=== PATIENT | male | born 1960 | race Caucasian/White ===

== ENCOUNTER 2019-09-21 15:35 | Emergency (ER) | payer OTHER ==
--- NOTE | 2019-09-21 15:41 | PDOC ---
Rapid Medical Evaluation Time Seen by Provider: 09/21/19 15:36 Medical Evaluation: 09/21/19 15:37 I have performed a brief in-person evaluation of this patient. The patient presents with a chief complaint of: weakness to RUE since 4 am, denies any pain, headache, change in vision or speech changes, denies CP/SOB Pertinent physical exam findings: 199/107 (L), 181/97, (R), no focal neuro deficits I have ordered the following: labs, ekg, head CT The patient will proceed to the ED for further evaluation. Discharge Disposition - Diagnosis Weakness - Referrals - Patient Instructions - Post Discharge Activity
[2019-09-21 15:43] VITALS: PULSE 79; TEMP 98.7; BMI 25.2
--- NOTE | 2019-09-21 16:21 | PDOC ---
History of Present Illness - History of Present Illness Initial Comments: 09/21/19 16:16 59M with pmh of DM2, HTN and HLD presents to the ED for neck pain and RUE weakness since 4am this morning. He felt like his right hand was very weak but didn't really appreciate how much until noon when he tried to lift a cup of coffee. He has known chronic orthopedic cervical spine problemes for years but has't seen his neurologist Dr. Matamoros in a few months. Was recently changed from his usual hypertensive and dm medication. Denies any headache, change in vision, chest pain, sob, difficulty walking or talking. Denies recent trauma. Last took his HTN medication at noon today. <Wilson Cristobal - Last Filed: 09/21/19 19:09> <Hannah Contreras - Last Filed: 09/22/19 10:29> - General Chief Complaint: Weakness Stated Complaint: WEAKNESS/BP PROBLEM Time Seen by Provider: 09/21/19 15:36 Past History - Past Medical History COPD: No Diabetes: Yes HTN: Yes Hypercholesterolemia: Yes - Psycho Social/Smoking Cessation Hx Smoking History: Current every day smoker Number of Cigarettes Smoked Daily: 20 Information on smoking cessation initiated: No Hx Alcohol Use: No Drug/Substance Use Hx: No <Wilson Cristobal - Last Filed: 09/21/19 19:09> <Hannah Contreras - Last Filed: 09/22/19 10:29> - Past Medical History Allergies/Adverse Reactions: Allergies Allergy/AdvReac Type Severity Reaction Status Date / Time No Known Allergies Allergy Verified 09/21/19 16:00 Home Medications: Ambulatory Orders Albuterol Sulfate Inhaler - [Ventolin Hfa Inhaler -] 1 - 2 inh PO Q4H PRN Amlodipine Besylate [Norvasc -] 5 mg PO DAILY 09/21/19 Budesonide/Formeterol Fumarate [SYMBICORT 160/4.5mcg -] 1 inh PO BID 09/21/19 Glimepiride [Amaryl -] 2 mg PO BID 09/21/19 Losartan Potassium [Cozaar] 100 mg PO DAILY 09/21/19 Metoprolol Succinate [Toprol Xl] 100 mg PO DAILY 09/21/19 Omeprazole 20 mg PO DAILY 09/21/19 Oxycodone HCl 10 mg PO TID 09/21/19 Pravastatin Sodium [Pravachol] 40 mg PO HS 09/21/19 Sitagliptin Phos/Metformin HCl [Janumet 50-500 mg Tablet] 1 each PO ASDIR Tamsulosin HCl [Flomax] 0.4 mg PO DAILY 09/21/19 Triamterene/Hydrochlorothiazid [Triamterene-Hctz 37.5-25 mg Cp] 1 each PO DAILY 09/21/19 Review of Systems - Review of Systems Able to Perform ROS?: Yes Is the patient limited Irish proficient: No Constitutional: No: Symptoms Reported HEENTM: No: Symptoms Reported Respiratory: No: Symptoms reported Cardiac (ROS): No: Symptoms Reported ABD/GI: No: Symptoms Reported : No: Symptoms Reported Musculoskeletal: No: Symptoms Reported Integumentary: No: Symptoms Reported Neurological: Yes: See HPI Endocrine: No: Symptoms Reported All Other Systems: Reviewed and Negative <Wilson Cristobal - Last Filed: 09/21/19 19:09> *Physical Exam - Vital Signs Last Vital Signs Temp Pulse Resp BP Pulse Ox 98.7 F 79 16 181/97 H 100 09/21/19 15:40 09/21/19 15:40 09/21/19 15:40 09/21/19 15:40 09/21/19 15:40 - Physical Exam General Appearance: Yes: Nourished, Appropriately Dressed. No: Apparent Distress HEENT: positive: EOMI, SILVIANO, Normal ENT Inspection Respiratory/Chest: positive: Lungs Clear, Normal Breath Sounds. negative: Chest Tender, Respiratory Distress Cardiovascular: positive: Regular Rhythm, Regular Rate, S1, S2 Gastrointestinal/Abdominal: positive: Normal Bowel Sounds, Flat, Soft. negative : Tender Extremity: positive: Other (Shoulder flexion with supinated hand shoots pain to right sided neck where his pain usually is. Strength 5/5 but causes pain to shoot to neck, arms gets shaky with effort. ) Integumentary: positive: Normal Color, Dry, Warm Neurologic: positive: Fully Oriented, Alert, Normal Mood/Affect, Normal Response , Motor Strength 5/5 <Wilson Cristobal - Last Filed: 09/21/19 19:09> - Vital Signs Last Vital Signs Temp Pulse Resp BP Pulse Ox 98.7 F 79 16 130/75 100 09/21/19 15:40 09/21/19 15:40 09/21/19 15:40 09/21/19 17:24 09/21/19 15:40 <Hannah Contreras - Last Filed: 09/22/19 10:29> ED Treatment Course - LABORATORY CBC & Chemistry Diagram: 09/21/19 16:20 09/21/19 17:21 - RADIOLOGY Radiology Studies Ordered: Category Date Time Status CERVICAL SPINE CT W/O CONTR [CT] Stat CT Scan 09/21/19 16:[address] (STROKE) [CT] Stat CT Scan 09/21/19 16:15 Ordered <Wilson Cristobal - Last Filed: 09/21/19 19:09> - LABORATORY CBC & Chemistry Diagram: 09/21/19 16:20 09/21/19 17:21 - ADDITIONAL ORDERS Additional order review: 09/21/19 16:20 RBC 4.66 MCV 91.3 MCHC 33.0 RDW 14.7 MPV 10.6 D Neutrophils % 69.4 Lymphocytes % 20.1 Monocytes % 8.3 Eosinophils % 1.3 Basophils % 0.9 - RADIOLOGY Radiology Studies Ordered: Category Date Time Status CERVICAL SPINE CT W/O CONTR [CT] Stat CT Scan 09/21/19 18:19 Completed - Medications Given in the ED: ED Medications Discontinued Medications Generic Name Dose Route Start Last Admin Trade Name Freq PRN Reason Stop Dose Admin Sodium Chloride 1,000 mls @ 1,000 mls/hr 09/21/19 18:47 09/21/19 19:41 Normal Saline - IV 09/21/19 19:46 1,000 mls/hr ASDIR STA Administration <Hannah Contreras - Last Filed: 09/22/19 10:29> Medical Decision Making - Medical Decision Making 09/21/19 16:33 59M with pmh of DM2, HTN and HLD presents to the ED for neck pain and RUE weakness since 4am this morning. This is likely a radiculopathy caused by a cervical spine process which this patient is known to have, due to the fact that the weakness is associated with shooting pain to the neck. The patient has no other focal deficits. Low suspicion for stroke however will still obtain appropriate labs and CT head and neck. 09/21/19 16:[address] Matamoros who wishes to be called back after the CT results. 09/21/19 18:12 Will obtain CTA head and neck to r/o carotid dissection due to the patient's hypertension and neck pain., Ok to use IV contrast even though patient has creatinine of 1.4 09/21/19 19:09 CTA read pending. Anastacia Matamoros to be notified. Patient signed out to Chief Ali <Wilson Cristobal - Last Filed: 09/21/19 19:09> Discharge - Discharge Information Problems reviewed: Yes <CristobalWilson - Last Filed: 09/21/19 19:09> - Admission No <Hannah Contreras - Last Filed: 09/22/19 10:29> - Discharge Information Clinical Impression/Diagnosis: Weakness, Radiculopathy affecting upper extremity Condition: Stable Disposition: HOME - Follow up/Referral Referrals: Anton Flores MD [Primary Care Provider] - Emilia Matamoros MD [Staff Physician] - - Patient Discharge Instructions Patient Printed Discharge Instructions: DI for Cervical Radiculopathy Additional Instructions: You have changes due to old age in your neck which are causing your nerves to be pinched. Discuss your results with your neurologist. Please take your medications as instructed and Tylenol for the pain every 6 hours as needed. Please follow up with Dr. Matamoros in the office (call to make an appointment). Please return to the ED if you have new or worsening symptoms. NIH Stroke Scale - Last Known Well Date/Time & Onset Date Last Known Well: 09/21/19 Time Last Known Well: 04:00 - Initial Evaluation Level of consciousness: Alert Ask patient the month and their age: Answers both correctly Ask patient to open & close eyes; make fist and let go: Obeys both correctly Best gaze (horizontal eye movement): Normal Visual field testing: No visual field loss Facial paresis (Show teeth/raise eyebrows/close eyes tight): Normal symmetrical movement Motor Function: Left Arm: Normal Motor Function: Right Arm: Drift Motor Function: Left Leg: Normal (extends leg 30 degrees for 5 seconds without drift) Motor Function: Right Leg: Normal (extends leg 30 degrees for 5 seconds without drift) Limb Ataxia: No ataxia Sensory(Use pinprick test arms,legs,trunk,face/side to side): Normal Best language (Describe picture, name items, read sentences): No Aphasia Dysarthria (read several words): Normal articulation Extinction and Inattention: No abnormality - Total Score NIH Stroke Scale Score: 1 <Wilson Cristobal - Last Filed: 09/21/19 19:09>
--- NOTE | 2019-09-21 16:39 | PDOC ---
Attending Attestation - Resident Resident Name: Wilson Cristobal - ED Attending Attestation I have performed the following: I have examined & evaluated the patient, The case was reviewed & discussed with the resident, I agree w/resident's findings & plan - HPI HPI: 09/21/19 16:38 59M with pmh of DM2, HTN and HLD presents to the ED for neck pain and RUE weakness since 4am this morning. He felt like his right hand was very weak but didn't really appreciate how much until noon when he tried to lift a cup of coffee. he endorses sharp shooting pain in his neck and a/w RUE pain/weakness. He has known chronic orthopedic cervical spine problems for years but hasn't seen his neurologist Dr. Matamoros in a few months. Was recently changed from his usual hypertensive and dm medication. Denies any headache, change in vision, chest pain, sob, difficulty walking or talking. Denies recent trauma. denies meningeal signs or infection, fevers. no gait instability Last took his HTN medication at noon today. 09/21/19 16:38 09/21/19 18:17 09/21/19 19:28 - Physicial Exam PE: 09/21/19 16:38 Agree with the resident's HPI and PE as documented in the electronic medical record. NAD, well appearing, EOMI, PERRL, nl conjunctiva, anicteric; neck supple, b/l paracervical TTP, no midline tenderness. lungs clear, RRR, no murmur, abdomen soft nontender. no rebound, guarding. Back nontender. KENNEY x4, no focal neuro deficits. No peripheral edema. normal color for ethnicity, WWP. Alert, oriented to person time and place. CN II-XII grossly intact. deltoid strength and sensation 5/5. FROM at the prox shoulder. Strength prox and distally 5/5 throughout. Sensation grossly intact to light touch. KENNEY x4. No cerebellar signs, no dysmetria, bilateral finger to nose and heel to monson equal and symmetric. Speech clear. gait stable, no ataxia 09/21/19 16:41 09/21/19 19:26 09/21/19 19:27 - Medical Decision Making 09/21/19 16:41 Vital Signs Temp Pulse Resp BP Pulse Ox 98.7 F 79 16 181/97 H 100 12/17/19 15:40 09/21/19 15:40 09/21/19 15:40 09/21/19 15:40 09/21/19 15:40 Differential diagnosis includes radiculopathy, neuropathy, cervical spine impingement, cervical dissection, aneurysm, carotid stenosis, CVA Chest x-ray is sinus rhythm, chemistry panel is within normal limits. Negative cardiac enzymes so unlikely to be ACS. CT to evaluate for dissection/aneurysm, carotid vessel disease given medical comorbidities and neck pain with RUE weakness, C spine imaging for cervical spine nerve impingement/radiculopathy declines analgesia clinically without focal neuro deficits currently, RUE weakness/radicular pain coming from neck, reproducible sx with arm and neck movement. unlikely CVA no trauma Dr Matamoros made aware, known history of cervical disease, will update with imaging results. s/o pending results, dispo. 09/21/19 18:16 09/21/19 19:27 09/21/19 19:28 09/21/19 19:28 09/22/19 10:30 Heart Score/ECG Review #1 ECG reviewed & interpreted by me at: 17:40 General ECG Interpretation: Sinus Rhythm, Normal Rate, Normal Intervals 09/21/19 17:43 EKG normal sinus rhythm at 72 bpm, no interval abnormalities, narrow QRS, ST and T wave segments and morphology normal.
[2019-09-21 16:45] LABS: BASO % 0.9 % (0-2.0); EOS % 1.3 % (0-4.5); HEMATOCRIT 42.6 % (35.4-49); LYMPH % 20.1 % (8-40); MCH 30.1 pg (25.7-33.7); MEAN CELL VOLUME 91.3 fl (80-96); MEAN PLT VOLUME 10.6 fl (7.5-11.1); MONO % 8.3 % (3.8-10.2); NEUT % 69.4 % (42.8-82.8); PLATELET COUNT 127 K/MM3 (134-434); RBC 4.66 M/mm3 (4.00-5.60); RDW 14.7 % (11.9-15.9); WHITE BLOOD COUNT 9.9 K/mm3 (4.0-10.0)
[2019-09-21 17:18] LABS: INR 0.93 (0.83-1.09)
[2019-09-21 17:21] LABS: ACTIVATED PTT 30.3 SECONDS (25.2-36.5)
[2019-09-21 17:24] VITALS: BP 130/75
[2019-09-21 18:06] LABS: ALBUMIN 3.8 g/dl (3.4-5.0); ALK PHOS 84 U/L (45-117); ANION GAP 9 MMOL/L (8-16); BILIRUBIN,TOTAL 0.6 mg/dL (0.2-1); BLOOD UREA NITROGEN 25.1 mg/dL (7-18); CALCIUM 9.1 mg/dL (8.5-10.1); CHLORIDE 107 mmol/L (98-107); CHOLESTEROL 157 mg/dL (50-200); CO2 26 mmol/L (21-32); CREATININE 1.4 mg/dL (0.55-1.3); GLUCOSE,RANDOM 150 mg/dL (74-106); HDL CHOLESTEROL 87 mg/dL (40-60); LDL CHOLESTEROL (ONLY SJRH) 44 mg/dL (5-100); POTASSIUM 4.9 mmol/L (3.5-5.1); SGOT/AST 85 U/L (15-37); SGPT/ALT 37 U/L (13-61); SODIUM 143 mmol/L (136-145); TRIGLYCERIDES 96 mg/dL (0-150)
[2019-09-21] MEDS ORDERED: SODIUM CHLORIDE 1,000 ML IV STA (18:47)
--- NOTE | 2019-09-21 20:12 | PDOC ---
*Physical Exam - Vital Signs Last Vital Signs Temp Pulse Resp BP Pulse Ox 98.7 F 79 16 130/75 100 09/21/19 15:40 09/21/19 15:40 09/21/19 15:40 09/21/19 17:24 09/21/19 15:40 - Physical Exam Signed out to me by Dr. Cristobal pending reads of CTA and conversation with Dr. Bass. CTA head and neck relatively unremarkable with minor stenosis. CT cervical spine demonstrating worsening degenerative changes between C3-C7. Discussed with patient (who feels better) and Dr. Matamoros who will see patient in office and arrange follow up with neurosurgery as needed. Patient agrees with plan and safe for discharge with family. 09/21/19 20:06 ED Treatment Course - LABORATORY CBC & Chemistry Diagram: 09/21/19 16:20 09/21/19 17:21 - ADDITIONAL ORDERS Additional order review: Laboratory Results 09/21/19 09/21/19 09/21/19 17:21 17:20 16:20 PT with INR INR PTT (Actin FS) Sodium 143 Cancelled Potassium 4.9 Cancelled Chloride 107 Cancelled Carbon Dioxide 26 Cancelled Anion Gap 9 Cancelled BUN 25.1 H Cancelled Creatinine 1.4 H Cancelled Est GFR (CKD-EPI)AfAm 62.40 Cancelled Est GFR (CKD-EPI)NonAf 53.84 Cancelled Random Glucose 150 H Cancelled Calcium 9.1 Cancelled Total Bilirubin 0.6 Cancelled AST 85 H Cancelled ALT 37 Cancelled Alkaline Phosphatase 84 Cancelled Creatine Kinase 140 Troponin I < 0.02 Total Protein 7.0 Cancelled Albumin 3.8 Cancelled Triglycerides 96 Cholesterol 157 Total LDL Cholesterol 44 HDL Cholesterol 87 H Blood Type O POSITIVE Antibody Screen Negative 09/21/19 09/21/19 16:20 16:20 PT with INR 11.00 INR 0.93 PTT (Actin FS) 30.3 Sodium Potassium Chloride Carbon Dioxide Anion Gap BUN Creatinine Est GFR (CKD-EPI)AfAm Est GFR (CKD-EPI)NonAf Random Glucose Calcium Total Bilirubin AST ALT Alkaline Phosphatase Creatine Kinase Cancelled Troponin I Cancelled Total Protein Albumin Triglycerides Cholesterol Total LDL Cholesterol HDL Cholesterol Blood Type Antibody Screen 09/21/19 16:20 RBC 4.66 MCV 91.3 MCHC 33.0 RDW 14.7 MPV 10.6 D Neutrophils % 69.4 Lymphocytes % 20.1 Monocytes % 8.3 Eosinophils % 1.3 Basophils % 0.9 - Medications Given in the ED: ED Medications Discontinued Medications Generic Name Dose Route Start Last Admin Trade Name [place] PRN Reason Stop Dose Admin Sodium Chloride 1,000 mls @ 1,000 mls/hr 09/21/19 18:47 09/21/19 19:41 Normal Saline - IV 09/21/19 19:46 1,000 mls/hr ASDIR STA Administration Discharge - Discharge Information Problems reviewed: Yes Clinical Impression/Diagnosis: Weakness, Radiculopathy affecting upper extremity Condition: Stable Disposition: HOME - Admission No - Follow up/Referral Referrals: Anton Flores MD [Primary Care Provider] - Emilia Matamoros MD [Staff Physician] - - Patient Discharge Instructions Patient Printed Discharge Instructions: DI for Cervical Radiculopathy Additional Instructions: You have changes due to old age in your neck which are causing your nerves to be pinched. Discuss your results with your neurologist. Please take your medications as instructed and Tylenol for the pain every 6 hours as needed. Please follow up with Dr. Matamoros in the office (call to make an appointment). Please return to the ED if you have new or worsening symptoms. - Post Discharge Activity
--- NOTE | 2019-09-22 12:37 | EKG ---
Test Reason : Blood Pressure : / mmHG Vent. Rate : 072 BPM Atrial Rate : 072 BPM P-R Int : 142 ms QRS Dur : 074 ms QT Int : 386 ms P-R-T Axes : 074 060 066 degrees QTc Int : 422 ms POOR DATA QUALITY, INTERPRETATION MAY BE ADVERSELY AFFECTED NORMAL SINUS RHYTHM POSSIBLE LEFT ATRIAL ENLARGEMENT BORDERLINE ECG WHEN COMPARED WITH ECG OF 22-MAR-2006 12:26, VENT. RATE HAS DECREASED BY 35 BPM Confirmed by MOISES KING MD ([id number]) on 09/22/2019 12:37:12 PM Referred By: Confirmed By:MOISES KING MD
== END 2019-09-21 20:19 | disposition home or self-care (01) ==
LOC: JER 15:35
PROC: 3E0337Z Introduction of Electrolytic and Water Balance Substance into Peripheral Vein, Percutaneous Approach (ICD-10-PCS; principal; 2019-09-21)
DX: R53.1 Weakness (principal)
CPT/HCPCS: 36415; 70496-TC; 70498-TC; 72125-TC; 80053; 80061; 82550; 83721; 84484; 85025; 85610; 85730; 86850; 86900; 86901; 93005; 93010; 99283-25; J7030; Q9967

== ENCOUNTER 2020-08-12 15:41 | Inpatient (IN) | payer OTHER ==
[2020-08-12] MEDS ORDERED: chlordiazePOXIDE HCL 25 MG CAPSULE PO ONE (16:51)
[2020-08-12] MEDS ORDERED: LORazepam 2 MG/ML SDV VIAL ONE (17:15)
[2020-08-12] MEDS ORDERED: chlordiazePOXIDE HCL 25 MG CAPSULE ONE ×2 (17:16→22:32)
[2020-08-12 17:17] LABS: BASO % 0.8 % (0-2.0); HEMATOCRIT 38.6 % (35.4-49); HEMOGLOBIN 12.6 GM/dL (11.7-16.9); LYMPH % 18.5 % (8-40); MCH 30.2 pg (25.7-33.7); MCHC 32.7 g/dl (32.0-35.9); MEAN CELL VOLUME 92.4 fl (80-96); MEAN PLT VOLUME 10.8 fl (7.5-11.1); MONO % 7.6 % (3.8-10.2); NEUT % 72.1 % (42.8-82.8); PLATELET COUNT 102 K/MM3 (134-434); RBC 4.18 M/mm3 (4.00-5.60); RDW 14.1 % (11.9-15.9); WHITE BLOOD COUNT 9.4 K/mm3 (4.0-10.0)
[2020-08-12 17:35] LABS: INR 0.98 (0.83-1.09); PROTHROMBIN TIME (PATIENT) 12.1 SEC (9.7-13.0)
[2020-08-12 17:43] LABS: POTASSIUM 5.4 mmol/L (3.5-5.1)
[2020-08-12 17:44] LABS: LIPASE 313 U/L (73-393)
[2020-08-12 17:45] LABS: CALCIUM 8.1 mg/dL (8.5-10.1)
[2020-08-12 17:46] LABS: ALBUMIN 4.2 g/dl (3.4-5.0); BLOOD UREA NITROGEN 27.4 mg/dL (7-18); MAGNESIUM 1.2 mg/dL (1.8-2.4)
[2020-08-12 17:49] LABS: CREATININE 1.7 mg/dL (0.55-1.3)
[2020-08-12 17:50] LABS: TOT PROT 7.7 g/dl (6.4-8.2)
[2020-08-12] MEDS ORDERED: MAGNESIUM OXIDE 400 MG TABLET (FP) PO ONE (18:56)
[2020-08-12] MEDS ORDERED: FOLIC ACID INJECTION - 1 MG, THIAMINE HCL 100 MG, MULTIVIT INJECTION ADULT 10 ML in SOD... IVPB ONE (18:57)
[2020-08-12] MEDS ORDERED: MAGNESIUM OXIDE 400 MG TABLET (FP) ONE (19:05)
[2020-08-12 20:07] LABS: POTASSIUM 5.3 mmol/L (3.5-5.1)
[2020-08-12 20:09] LABS: ALBUMIN 3.9 g/dl (3.4-5.0); BLOOD UREA NITROGEN 30.2 mg/dL (7-18); CALCIUM 8.3 mg/dL (8.5-10.1)
[2020-08-12 20:13] LABS: CREATININE 1.7 mg/dL (0.55-1.3)
[2020-08-12 20:14] LABS: BILIRUBIN,TOTAL 0.9 mg/dL (0.2-1); TOT PROT 7.2 g/dl (6.4-8.2)
[2020-08-12] MEDS ORDERED: FOLIC ACID 1 MG TABLET (FP) PO ONE (20:47)
[2020-08-12] MEDS ORDERED: chlordiazePOXIDE HCL 25 MG CAPSULE PO PRN (20:48)
[2020-08-12] MEDS ORDERED: FOLIC ACID 1 MG TABLET (FP) ONE (22:32)
[2020-08-12] MEDS: chlordiazePOXIDE HCL 25 MG CAPSULE PO SCH (22:55)
[2020-08-13] MEDS: SODIUM CHLORIDE 1,000 ML IV SCH ×3 (00:32→21:40)
[2020-08-13 01:57] VITALS: BMI 22.5
[2020-08-13] MEDS: chlordiazePOXIDE HCL 25 MG CAPSULE PO SCH ×4 (05:49→22:55)
[2020-08-13] MEDS ORDERED: GLIMEPIRIDE 2 MG TABLET PO SCH (07:00)
[2020-08-13 07:42] LABS: BASO % 0.9 % (0-2.0); EOS % 3.2 % (0-4.5); HEMATOCRIT 30.4 % (35.4-49); HEMOGLOBIN 9.9 GM/dL (11.7-16.9); LYMPH % 31.2 % (8-40); MCH 29.8 pg (25.7-33.7); MCHC 32.5 g/dl (32.0-35.9); MEAN CELL VOLUME 91.7 fl (80-96); MEAN PLT VOLUME 10.1 fl (7.5-11.1); MONO % 12.2 % (3.8-10.2); NEUT % 52.5 % (42.8-82.8); PLATELET COUNT 61 K/MM3 (134-434); RBC 3.31 M/mm3 (4.00-5.60); RDW 13.9 % (11.9-15.9); WHITE BLOOD COUNT 4.5 K/mm3 (4.0-10.0)
[2020-08-13] MEDS: TAMSULOSIN HCL 0.4 MG CAP PO SCH (08:06)
[2020-08-13 08:07] LABS: POTASSIUM 3.9 mmol/L (3.5-5.1)
[2020-08-13 08:13] LABS: CALCIUM 7.6 mg/dL (8.5-10.1)
[2020-08-13 08:14] LABS: ALBUMIN 3.1 g/dl (3.4-5.0); BLOOD UREA NITROGEN 31.6 mg/dL (7-18); MAGNESIUM 1.3 mg/dL (1.8-2.4)
[2020-08-13 08:17] LABS: CREATININE 1.5 mg/dL (0.55-1.3)
[2020-08-13 08:18] LABS: BILIRUBIN,TOTAL 1.1 mg/dL (0.2-1); TOT PROT 5.8 g/dl (6.4-8.2)
[2020-08-13] MEDS ORDERED: PT OWN MED DRAWER 7, Y5N ONE (09:40)
[2020-08-13] MEDS: MULTIVITAMINS (DAILY MVI) TABLET (FP) PO SCH (09:46)
[2020-08-13] MEDS: THIAMINE HCL 100 MG TABLET (FP) PO SCH (09:46)
[2020-08-13] MEDS: BUDESONIDE/FORMETEROL FUMARATE 160/4.5 mcg INHALER IH SCH ×2 (09:46→21:42)
[2020-08-13] MEDS ORDERED: HEPARIN NA (PORCINE) 5,000 UNITS/ML 1ML VIAL SQ SCH (10:00)
[2020-08-13] MEDS ORDERED: METOPROLOL TARTRATE 50 MG TABLET (FP) PO SCH (10:00)
[2020-08-13] MEDS ORDERED: MAGNESIUM SULF 50% (8.12 MEQ/2 ML-1 GM VIAL) IVPB ONE (16:20)
[2020-08-13] MEDS: ATORVASTATIN CA 10 MG TABLET (FP) PO SCH (21:41)
[2020-08-13] MEDS: INSULIN SLIDING SCALE (NOVOLOG) 1 VIAL SQ SCH ×2 (21:41→21:47)
[2020-08-14] MEDS: SODIUM CHLORIDE 1,000 ML IV SCH ×2 (05:52→23:04)
[2020-08-14] MEDS: chlordiazePOXIDE HCL 25 MG CAPSULE PO SCH ×4 (05:53→22:52)
[2020-08-14] MEDS: INSULIN SLIDING SCALE (NOVOLOG) 1 VIAL SQ SCH ×5 (05:59→22:58)
[2020-08-14 07:20] LABS: BASO % 0.4 % (0-2.0); EOS % 2.8 % (0-4.5); HEMATOCRIT 31.4 % (35.4-49); HEMOGLOBIN 10.1 GM/dL (11.7-16.9); LYMPH % 33.5 % (8-40); MCH 29.9 pg (25.7-33.7); MCHC 32.1 g/dl (32.0-35.9); MEAN CELL VOLUME 93.1 fl (80-96); MEAN PLT VOLUME 9.8 fl (7.5-11.1); NEUT % 52.3 % (42.8-82.8); PLATELET COUNT 59 K/MM3 (134-434); RBC 3.37 M/mm3 (4.00-5.60); RDW 13.8 % (11.9-15.9); WHITE BLOOD COUNT 4.5 K/mm3 (4.0-10.0)
[2020-08-14 07:53] LABS: POTASSIUM 3.9 mmol/L (3.5-5.1)
[2020-08-14 08:01] LABS: ALBUMIN 2.9 g/dl (3.4-5.0); BLOOD UREA NITROGEN 18.6 mg/dL (7-18); CALCIUM 7.8 mg/dL (8.5-10.1)
[2020-08-14 08:05] LABS: CREATININE 1.1 mg/dL (0.55-1.3)
[2020-08-14 08:06] LABS: BILIRUBIN,TOTAL 0.8 mg/dL (0.2-1); TOT PROT 5.7 g/dl (6.4-8.2)
[2020-08-14] MEDS: THIAMINE HCL 100 MG TABLET (FP) PO SCH (09:24)
[2020-08-14] MEDS: TAMSULOSIN HCL 0.4 MG CAP PO SCH (09:24)
[2020-08-14] MEDS: MULTIVITAMINS (DAILY MVI) TABLET (FP) PO SCH (09:25)
[2020-08-14] MEDS: BUDESONIDE/FORMETEROL FUMARATE 160/4.5 mcg INHALER IH SCH ×2 (09:25→22:53)
[2020-08-14] MEDS: CYANOCOBALAMIN 1,000 MCG TABLET (FP) PO SCH (13:35)
[2020-08-14] MEDS ORDERED: PT OWN MED DRAWER 7, Y5N ONE (16:31)
[2020-08-14] MEDS: THIAMINE HCL 200 MG/2 ML VIAL IVPB SCH (22:52)
[2020-08-14] MEDS: ATORVASTATIN CA 10 MG TABLET (FP) PO SCH (22:53)
[2020-08-15] MEDS ORDERED: chlordiazePOXIDE HCL 10 MG CAPSULE PO PRN
[2020-08-15] MEDS: THIAMINE HCL 200 MG/2 ML VIAL IVPB SCH ×3 (02:20→17:37)
[2020-08-15] MEDS: chlordiazePOXIDE HCL 10 MG CAPSULE PO SCH ×4 (06:48→23:59)
[2020-08-15] MEDS: INSULIN SLIDING SCALE (NOVOLOG) 1 VIAL SQ SCH ×4 (06:54→21:09)
[2020-08-15 08:00] LABS: HEMATOCRIT 30.5 % (35.4-49); HEMOGLOBIN 9.9 GM/dL (11.7-16.9); MCH 30.6 pg (25.7-33.7); MCHC 32.5 g/dl (32.0-35.9); MEAN CELL VOLUME 94.1 fl (80-96); MEAN PLT VOLUME 10.5 fl (7.5-11.1); PLATELET COUNT 63 K/MM3 (134-434); RBC 3.23 M/mm3 (4.00-5.60); RDW 14.3 % (11.9-15.9); WHITE BLOOD COUNT 5.4 K/mm3 (4.0-10.0)
[2020-08-15] MEDS: TAMSULOSIN HCL 0.4 MG CAP PO SCH (08:18)
[2020-08-15 08:30] LABS: POTASSIUM 3.8 mmol/L (3.5-5.1)
[2020-08-15 08:37] LABS: ALBUMIN 2.6 g/dl (3.4-5.0); BLOOD UREA NITROGEN 11.7 mg/dL (7-18); CALCIUM 7.7 mg/dL (8.5-10.1)
[2020-08-15 08:38] LABS: IRON SERUM 41 ug/dL (50-175); TOTAL IRON BINDING CAPACITY 174 ug/dL (250-450)
[2020-08-15 08:40] LABS: CREATININE 0.8 mg/dL (0.55-1.3)
[2020-08-15 08:42] LABS: BILIRUBIN,TOTAL 0.4 mg/dL (0.2-1); TOT PROT 5.4 g/dl (6.4-8.2)
[2020-08-15] MEDS: CYANOCOBALAMIN 1,000 MCG TABLET (FP) PO SCH (09:19)
[2020-08-15] MEDS: MULTIVITAMINS (DAILY MVI) TABLET (FP) PO SCH (09:19)
[2020-08-15] MEDS: BUDESONIDE/FORMETEROL FUMARATE 160/4.5 mcg INHALER IH SCH ×2 (09:20→21:09)
[2020-08-15] MEDS ORDERED: FERROUS SO4 325 MG TABLET (FP) PO SCH (12:30)
[2020-08-15] MEDS ORDERED: MAGNESIUM OXIDE 400 MG TABLET (FP) PO ONE (12:30)
[2020-08-15 12:40] LABS: HIV INTERPRETATION NEGATIVE (NEGATIVE)
[2020-08-15] MEDS: FERROUS SO4 325 MG TABLET (FP) PO SCH ×2 (12:52→21:08)
[2020-08-15] MEDS: DOCUSATE SODIUM 100 MG CAPSULE (FP) PO SCH (12:53)
[2020-08-15] MEDS ORDERED: IRON SUCROSE INJECTION 300 MG in SODIUM CHLORIDE 235 ML IVPB ONE (15:00)
[2020-08-15] MEDS: ATORVASTATIN CA 10 MG TABLET (FP) PO SCH (21:08)
[2020-08-16] MEDS: THIAMINE HCL 200 MG/2 ML VIAL IVPB SCH ×3 (01:37→17:10)
[2020-08-16] MEDS: INSULIN SLIDING SCALE (NOVOLOG) 1 VIAL SQ SCH ×4 (06:05→22:02)
[2020-08-16] MEDS: chlordiazePOXIDE HCL 10 MG CAPSULE PO SCH ×2 (06:05→17:09)
[2020-08-16 07:39] LABS: POTASSIUM 3.7 mmol/L (3.5-5.1)
[2020-08-16 07:56] LABS: ALBUMIN 2.9 g/dl (3.4-5.0); BLOOD UREA NITROGEN 10.2 mg/dL (7-18)
[2020-08-16 07:58] LABS: BILIRUBIN,TOTAL 0.4 mg/dL (0.2-1)
[2020-08-16 08:06] LABS: TOT PROT 5.5 g/dl (6.4-8.2)
[2020-08-16] MEDS ORDERED: PT OWN MED DRAWER 7, Y5N ONE (08:50)
[2020-08-16] MEDS: TAMSULOSIN HCL 0.4 MG CAP PO SCH (09:06)
[2020-08-16] MEDS: CYANOCOBALAMIN 1,000 MCG TABLET (FP) PO SCH (09:07)
[2020-08-16] MEDS: FERROUS SO4 325 MG TABLET (FP) PO SCH ×2 (09:07→21:56)
[2020-08-16] MEDS: DOCUSATE SODIUM 100 MG CAPSULE (FP) PO SCH (09:07)
[2020-08-16] MEDS: MULTIVITAMINS (DAILY MVI) TABLET (FP) PO SCH (09:07)
[2020-08-16] MEDS: BUDESONIDE/FORMETEROL FUMARATE 160/4.5 mcg INHALER IH SCH ×2 (09:08→21:56)
[2020-08-16] MEDS ORDERED: MAGNESIUM SULF 50% (8.12 MEQ/2 ML-1 GM VIAL) IVPB ONE (10:17)
[2020-08-16 10:18] LABS: BASO % 0.5 % (0-2.0); HEMATOCRIT 33.9 % (35.4-49); HEMOGLOBIN 10.9 GM/dL (11.7-16.9); MCH 30.4 pg (25.7-33.7); MEAN CELL VOLUME 94.8 fl (80-96); MEAN PLT VOLUME 10.6 fl (7.5-11.1); MONO % 9.9 % (3.8-10.2); NEUT % 60.6 % (42.8-82.8); PLATELET COUNT 86 K/MM3 (134-434); RBC 3.58 M/mm3 (4.00-5.60); RDW 14.4 % (11.9-15.9)
[2020-08-16] MEDS ORDERED: MAGNESIUM SULFATE IN WATER 2 GM/50 ML IVPB IVPB ONE (10:30)
[2020-08-16 10:47] LABS: POTASSIUM 3.8 mmol/L (3.5-5.1)
[2020-08-16 10:49] LABS: ALBUMIN 3.1 g/dl (3.4-5.0); BLOOD UREA NITROGEN 10.5 mg/dL (7-18); CALCIUM 8.2 mg/dL (8.5-10.1)
[2020-08-16 10:52] LABS: CREATININE 1.2 mg/dL (0.55-1.3)
[2020-08-16 10:54] LABS: BILIRUBIN,TOTAL 0.4 mg/dL (0.2-1); TOT PROT 6.3 g/dl (6.4-8.2)
[2020-08-16] MEDS: MAGNESIUM OXIDE 400 MG TABLET (FP) PO SCH ×2 (11:01→21:56)
[2020-08-16] MEDS: ATORVASTATIN CA 10 MG TABLET (FP) PO SCH (21:56)
[2020-08-16 23:07] LABS: HEP B CORE AB, TOT Negative (Negative)
[2020-08-17] MEDS: THIAMINE HCL 200 MG/2 ML VIAL IVPB SCH ×3 (01:18→18:08)
[2020-08-17] MEDS ORDERED: chlordiazePOXIDE HCL 10 MG CAPSULE PO ONE (05:00)
[2020-08-17] MEDS: INSULIN SLIDING SCALE (NOVOLOG) 1 VIAL SQ SCH ×3 (06:08→18:07)
[2020-08-17] MEDS: TAMSULOSIN HCL 0.4 MG CAP PO SCH (09:23)
[2020-08-17] MEDS: MAGNESIUM OXIDE 400 MG TABLET (FP) PO SCH (09:23)
[2020-08-17] MEDS: CYANOCOBALAMIN 1,000 MCG TABLET (FP) PO SCH (09:24)
[2020-08-17] MEDS: FERROUS SO4 325 MG TABLET (FP) PO SCH (09:24)
[2020-08-17] MEDS: MULTIVITAMINS (DAILY MVI) TABLET (FP) PO SCH (09:24)
[2020-08-17] MEDS: BUDESONIDE/FORMETEROL FUMARATE 160/4.5 mcg INHALER IH SCH (09:25)
[2020-08-17] MEDS: DOCUSATE SODIUM 100 MG CAPSULE (FP) PO SCH (09:25)
[2020-08-17 12:28] LABS: POTASSIUM 3.8 mmol/L (3.5-5.1)
[2020-08-17 12:30] LABS: ALBUMIN 2.9 g/dl (3.4-5.0); BLOOD UREA NITROGEN 12.3 mg/dL (7-18); MAGNESIUM 1.3 mg/dL (1.8-2.4)
[2020-08-17 12:34] LABS: CREATININE 1.3 mg/dL (0.55-1.3)
[2020-08-17 12:35] LABS: BILIRUBIN,TOTAL 0.3 mg/dL (0.2-1); TOT PROT 6.2 g/dl (6.4-8.2)
[2020-08-17] MEDS ORDERED: MAGNESIUM SULF 50% (8.12 MEQ/2 ML-1 GM VIAL) IVPB ONE (13:01)
[2020-08-17] MEDS ORDERED: MAGNESIUM SULFATE IN WATER 2 GM/50 ML IVPB IVPB ONE (13:15)
[2020-08-17 18:18] VITALS: BP 144/81; PULSE 75; TEMP 97.6
[2020-08-24 10:07] LABS: ALPHA 2 MACROGLOBULINS,QN 234 mg/dL (110-276); ALT(SGPT)P5P 15 IU/L (0-55); CHOLESTEROL TOTAL 124 mg/dL (100-199); GLUCOSE SERUM 144 mg/dL (65-99)
== END 2020-08-17 18:30 | disposition home or self-care (01) | DRG 775 ==
LOC: JER 15:41 → JERBED 20:24 → J4S 08-13 00:31
PROVIDERS: ADMIT Internal Medicine; ATTEND Family Medicine
DX: F10.230 Alcohol dependence with withdrawal, uncomplicated (principal); N17.9 Acute kidney failure, unspecified; E11.22 Type 2 diabetes mellitus with diabetic chronic kidney disease; D69.6 Thrombocytopenia, unspecified; G62.1 Alcoholic polyneuropathy; I12.9 Hypertensive chronic kidney disease with stage 1 through stage 4 chronic kidney disease, or unspecified chronic kidney disease; M54.9 Dorsalgia, unspecified; Z79.84 Long term (current) use of oral hypoglycemic drugs; Z87.891 Personal history of nicotine dependence; M25.569 Pain in unspecified knee; E78.5 Hyperlipidemia, unspecified; N18.9 Chronic kidney disease, unspecified; R26.81 Unsteadiness on feet; E87.6 Hypokalemia; R63.4 Abnormal weight loss; E53.8 Deficiency of other specified B group vitamins; D53.9 Nutritional anemia, unspecified; N40.0 Benign prostatic hyperplasia without lower urinary tract symptoms; Z68.22 Body mass index [BMI] 22.0-22.9, adult; R91.1 Solitary pulmonary nodule; R76.8 Other specified abnormal immunological findings in serum
CPT/HCPCS: 36415; 71250-TC; 73562-TC-RT-FY; 74176-TC; 80053; 80307; 82010; 82140; 82272; 82378; 82607; 82728; 82746; 82962; 83010; 83036; 83540; 83550; 83615; 83690; 83735; 84100; 84443; 85025; 85027; 85045; 85610; 86704; 86706; 86707; 86708; 86709; 86803; 87086; 87186; 87340; 87389; 93005; 93010; 97116-GP; 97161-GP; 99285-25; C9803; J1644; J1756; U0003

== ENCOUNTER 2020-10-27 16:17 | Inpatient (IN) | payer OTHER ==
[2020-10-27 16:51] VITALS: BMI 22.8
[2020-10-27] MEDS ORDERED: FOLIC ACID INJECTION - 1 MG, THIAMINE HCL 100 MG, MULTIVIT INJECTION ADULT 10 ML in SOD... IVPB ONE (19:05)
[2020-10-27] MEDS ORDERED: LORazepam 2 MG/ML SDV VIAL IVPUSH ONE ×2 (19:38→22:15)
[2020-10-27 19:39] LABS: BASO % 0.8 % (0-2.0); EOS % 0.2 % (0-4.5); HEMATOCRIT 39.9 % (35.4-49); HEMOGLOBIN 12.7 GM/dL (11.7-16.9); LYMPH % 12.5 % (8-40); MCH 30.5 pg (25.7-33.7); MCHC 31.9 g/dl (32.0-35.9); MEAN CELL VOLUME 95.6 fl (80-96); MEAN PLT VOLUME 10.8 fl (7.5-11.1); MONO % 6.4 % (3.8-10.2); NEUT % 80.1 % (42.8-82.8); PLATELET COUNT 132 K/MM3 (134-434); RBC 4.17 M/mm3 (4.00-5.60); RDW 16.9 % (11.9-15.9); WHITE BLOOD COUNT 12.2 K/mm3 (4.0-10.0)
[2020-10-27 19:45] LABS: INR 1.08 (0.83-1.09); PROTHROMBIN TIME (PATIENT) 13.2 SEC (9.7-13.0)
[2020-10-27] MEDS ORDERED: LORazepam 2 MG/ML SDV VIAL ONE ×2 (19:47→22:29)
[2020-10-27 20:01] LABS: CHLORIDE 96 mmol/L (98-107)
[2020-10-27 20:03] LABS: BLOOD UREA NITROGEN 15.6 mg/dL (7-18)
[2020-10-27 20:04] LABS: ALBUMIN 3.3 g/dl (3.4-5.0); CO2 24 mmol/L (21-32); GLUCOSE,RANDOM 247 mg/dL (74-106)
[2020-10-27 20:07] LABS: CREATININE 1.3 mg/dL (0.55-1.3)
[2020-10-27 20:08] LABS: TOT PROT 8.9 g/dl (6.4-8.2)
[2020-10-27 20:09] LABS: ALK PHOS 110 U/L (45-117)
[2020-10-27] MEDS ORDERED: MAGNESIUM SULF 50% (8.12 MEQ/2 ML-1 GM VIAL) IVPB ONE (20:33)
[2020-10-27 20:41] LABS: ANION GAP -12 MMOL/L (8-16)
[2020-10-27 20:42] LABS: POTASSIUM > 10.0 mmol/L (3.5-5.1)
[2020-10-27 20:43] LABS: SODIUM 108 mmol/L (136-145)
[2020-10-27 20:44] LABS: CALCIUM 6.2 mg/dL (8.5-10.1)
[2020-10-27 21:55] LABS: VENOUS BASE EXCESS -3.2 mmol/L (-2-2); VENOUS O2 SATURATION 73.5 % (70-80); VENOUS PCO2 39.1 mmHg (38-52); VENOUS PH 7.364 (7.310-7.410)
[2020-10-27] MEDS ORDERED: CYANOCOBALAMIN (VITAMIN B-12) 1000 MCG/1 ML VIAL IM ONE (22:12)
[2020-10-27 22:21] LABS: CHLORIDE 102 mmol/L (98-107); POTASSIUM 5.5 mmol/L (3.5-5.1); SODIUM 137 mmol/L (136-145)
[2020-10-27 22:22] LABS: CALCIUM 7.1 mg/dL (8.5-10.1)
[2020-10-27 22:23] LABS: ANION GAP 13 MMOL/L (8-16); CO2 22 mmol/L (21-32); GLUCOSE,RANDOM 255 mg/dL (74-106); MAGNESIUM 0.5 mg/dL (1.8-2.4)
[2020-10-27 22:26] LABS: CREATININE 1.2 mg/dL (0.55-1.3)
[2020-10-27] MEDS ORDERED: MAGNESIUM SULFATE IN WATER 2 GM/50 ML IVPB IVPB ONE (22:29)
[2020-10-28 01:07] LABS: EPI CELLS 18 /uL (0-25.1); HYALINE CASTS 2 /uL (0-3.1); URINE APPEARANCE TURBID; URINE BACTERIA 1134 /uL (0-1359); URINE BILIRUBIN NEGATIVE (NEGATIVE); URINE COLOR YELLOW; URINE GLUCOSE (UA) TRACE (NEGATIVE); URINE KETONE TRACE (NEGATIVE); URINE LEUK ESTERASE 3+ (NEGATIVE); URINE NITRITE NEGATIVE (NEGATIVE); URINE PROTEIN 2+ (NEGATIVE); URINE RBC 149 /uL (0-23.9); URINE UROBILINOGEN 0.2 mg/dL (0.2-1.0); URINE WBC 5432 /uL (0-25.8)
[2020-10-28] MEDS ORDERED: chlordiazePOXIDE HCL 25 MG CAPSULE PO PRN (01:34)
[2020-10-28] MEDS ORDERED: MAGNESIUM SULF 50% (8.12 MEQ/2 ML-1 GM VIAL) IVPB ONE (02:26)
[2020-10-28] MEDS ORDERED: CEFTRIAXONE 1 GM in DEXTROSE 5%-WATER - 50 ML IVPB SCH (03:15)
[2020-10-28] MEDS ORDERED: MAGNESIUM SULFATE IN WATER 2 GM/50 ML IVPB IVPB ONE (03:16)
[2020-10-28] MEDS ORDERED: CEFTRIAXONE 1 GM/50 ML BAG ONE (03:39)
[2020-10-28 03:58] LABS: PHOSPHOROUS 4.1 mg/dL (2.5-4.9)
[2020-10-28] MEDS ORDERED: chlordiazePOXIDE HCL 25 MG CAPSULE ONE ×2 (04:53→10:27)
[2020-10-28] MEDS: chlordiazePOXIDE HCL 25 MG CAPSULE PO SCH ×2 (04:56→10:39)
[2020-10-28 05:27] VITALS: TEMP 98.4
[2020-10-28 06:32] LABS: BASO % 0.3 % (0-2.0); EOS % 1.5 % (0-4.5); HEMATOCRIT 34.4 % (35.4-49); HEMOGLOBIN 11.2 GM/dL (11.7-16.9); LYMPH % 16.2 % (8-40); MCH 30.8 pg (25.7-33.7); MCHC 32.6 g/dl (32.0-35.9); MEAN CELL VOLUME 94.5 fl (80-96); MEAN PLT VOLUME 10.2 fl (7.5-11.1); MONO % 9.1 % (3.8-10.2); NEUT % 72.9 % (42.8-82.8); PLATELET COUNT 102 K/MM3 (134-434); RBC 3.64 M/mm3 (4.00-5.60); RDW 16.4 % (11.9-15.9); WHITE BLOOD COUNT 8.5 K/mm3 (4.0-10.0)
[2020-10-28 06:50] LABS: BLOOD UREA NITROGEN 14.6 mg/dL (7-18)
[2020-10-28 06:51] LABS: ALBUMIN 3.1 g/dl (3.4-5.0); MAGNESIUM 1.6 mg/dL (1.8-2.4)
[2020-10-28 06:53] LABS: CREATININE 1.1 mg/dL (0.55-1.3)
[2020-10-28 06:54] LABS: PHOSPHOROUS 3.2 mg/dL (2.5-4.9)
[2020-10-28 06:55] LABS: BILIRUBIN,TOTAL 0.6 mg/dL (0.2-1)
[2020-10-28] MEDS ORDERED: INSULIN SLIDING SCALE (NOVOLOG) 1 VIAL SQ SCH (07:00)
[2020-10-28 07:08] LABS: CALCIUM 6.7 mg/dL (8.5-10.1)
[2020-10-28] MEDS ORDERED: ENOXAPARIN NA (PORCINE) 40 MG/0.4 ML DISP.SYRIN SQ SCH (10:00)
[2020-10-28] MEDS ORDERED: FOLIC ACID 1 MG TABLET (FP) PO SCH (10:00)
[2020-10-28] MEDS ORDERED: MAGNESIUM OXIDE 400 MG TABLET (FP) PO SCH (10:00)
[2020-10-28] MEDS ORDERED: MULTIVITAMINS (DAILY MVI) TABLET (FP) PO SCH (10:00)
[2020-10-28] MEDS ORDERED: THIAMINE HCL 200 MG/2 ML VIAL IVPB SCH (10:00)
[2020-10-28] MEDS ORDERED: THIAMINE HCL 200 MG/2 ML VIAL ONE (10:27)
[2020-10-28] MEDS ORDERED: ENOXAPARIN NA (PORCINE) 40 MG/0.4 ML DISP.SYRIN SQ ONE (10:28)
[2020-10-28] MEDS ORDERED: MULTIVITAMINS (DAILY MVI) TABLET (FP) ONE (10:28)
[2020-10-28] MEDS ORDERED: FOLIC ACID 1 MG TABLET (FP) ONE (10:28)
[2020-10-28 10:52] VITALS: BP 132/81; PULSE 95
[2020-10-29] MEDS ORDERED: chlordiazePOXIDE HCL 25 MG CAPSULE PO SCH (05:00)
[2020-10-30] MEDS ORDERED: chlordiazePOXIDE HCL 10 MG CAPSULE PO PRN
[2020-10-30] MEDS ORDERED: chlordiazePOXIDE HCL 10 MG CAPSULE PO SCH (05:00)
[2020-10-31] MEDS ORDERED: chlordiazePOXIDE HCL 10 MG CAPSULE PO SCH (05:00)
[2020-11-01] MEDS ORDERED: chlordiazePOXIDE HCL 10 MG CAPSULE PO ONE (05:00)
== END 2020-10-28 13:35 | disposition left against medical advice (07) | DRG 770 ==
LOC: JER 16:17 → JERBED 23:45
PROVIDERS: ADMIT Hospitalist; ATTEND Family Medicine
PROC: HZ2ZZZZ Detoxification Services for Substance Abuse Treatment (ICD-10-PCS; principal; 2020-10-27)
DX: F10.239 Alcohol dependence with withdrawal, unspecified (principal); E46 Unspecified protein-calorie malnutrition; E83.42 Hypomagnesemia; E87.5 Hyperkalemia; F10.26 Alcohol dependence with alcohol-induced persisting amnestic disorder; E11.40 Type 2 diabetes mellitus with diabetic neuropathy, unspecified; E11.65 Type 2 diabetes mellitus with hyperglycemia; R26.81 Unsteadiness on feet; I10 Essential (primary) hypertension; E78.5 Hyperlipidemia, unspecified; N39.0 Urinary tract infection, site not specified; N40.0 Benign prostatic hyperplasia without lower urinary tract symptoms; F10.288 Alcohol dependence with other alcohol-induced disorder; R26.2 Difficulty in walking, not elsewhere classified; M54.9 Dorsalgia, unspecified; M25.569 Pain in unspecified knee; G89.29 Other chronic pain; M48.00 Spinal stenosis, site unspecified; R27.0 Ataxia, unspecified; H55.09 Other forms of nystagmus; Z68.22 Body mass index [BMI] 22.0-22.9, adult; J44.9 Chronic obstructive pulmonary disease, unspecified
CPT/HCPCS: 36415; 70450-TC; 71045-TC-FY; 72125-TC; 80048; 80053; 80307; 81003; 82550; 82553; 82607; 82803; 82962; 83735; 84100; 84484; 85025; 85610; 87086; 87186; 93005; 93010; 99285-25; C9803; U0003

== ENCOUNTER 2021-08-20 13:13 | Inpatient (IN) | payer OTHER ==
[2021-08-20 17:57] LABS: BASO % 0.6 % (0-2.0); HEMATOCRIT 32.7 % (35.4-49); HEMOGLOBIN 10.9 GM/dL (11.7-16.9); LYMPH % 29.6 % (8-40); MCH 31.6 pg (25.7-33.7); MCHC 33.4 g/dl (32.0-35.9); MEAN CELL VOLUME 94.6 fl (80-96); MONO % 10.8 % (3.8-10.2); PLATELET COUNT 130 10^3/uL (134-434); RBC 3.45 M/mm3 (4.00-5.60); RDW 14.6 % (11.9-15.9); WHITE BLOOD COUNT 6.1 K/mm3 (4.0-10.0)
[2021-08-20 18:04] LABS: INR 1.17 (0.83-1.09); PROTHROMBIN TIME (PATIENT) 13.7 SEC (9.7-13.0)
[2021-08-20 18:16] LABS: CHLORIDE 104 mmol/L (98-107); SODIUM 141 mmol/L (136-145)
[2021-08-20 18:19] LABS: ALBUMIN 3.1 g/dl (3.4-5.0); ANION GAP 10 MMOL/L (8-16); BLOOD UREA NITROGEN 16.4 mg/dL (7-18); CO2 26 mmol/L (21-32); GLUCOSE,RANDOM 158 mg/dL (74-106); MAGNESIUM 0.8 mg/dL (1.8-2.4)
[2021-08-20 18:22] LABS: CREATININE 1.3 mg/dL (0.55-1.3); SGOT/AST 81 U/L (15-37); SGPT/ALT 32 U/L (13-61)
[2021-08-20 18:24] LABS: BILIRUBIN,TOTAL 0.6 mg/dL (0.2-1); TOT PROT 6.7 g/dl (6.4-8.2)
[2021-08-20 18:25] LABS: ALK PHOS 106 U/L (45-117)
[2021-08-20 18:31] LABS: EPI CELLS 8 /uL (0-25.1); HYALINE CASTS 3 /uL (0-3.1); URINE APPEARANCE TURBID; URINE BACTERIA 112 /uL (0-1359); URINE BILIRUBIN NEGATIVE (NEGATIVE); URINE COLOR YELLOW; URINE GLUCOSE (UA) NEGATIVE (NEGATIVE); URINE KETONE NEGATIVE (NEGATIVE); URINE LEUK ESTERASE 3+ (NEGATIVE); URINE NITRITE NEGATIVE (NEGATIVE); URINE PROTEIN 1+ (NEGATIVE); URINE RBC 101 /uL (0-23.9); URINE WBC 9789 /uL (0-25.8)
[2021-08-20] MEDS ORDERED: MAGNESIUM SULF 50% (8.12 MEQ/2 ML-1 GM VIAL) IVPB ONE (18:36)
[2021-08-20] MEDS ORDERED: CEFTRIAXONE 1,000 MG in DEXTROSE 5%-WATER - 50 ML IVPB ONE (18:38)
[2021-08-20 18:53] LABS: CALCIUM 6.9 mg/dL (8.5-10.1)
[2021-08-20] MEDS ORDERED: MAGNESIUM SULFATE IN WATER 2 GM/50 ML IVPB IVPB ONE (19:09)
[2021-08-20] MEDS ORDERED: CEFTRIAXONE 1 GM/50 ML BAG ONE (19:58)
[2021-08-21] MEDS ORDERED: POLYETHYLENE GLYCOL 3350 119 GM BTL PO PRN (00:42)
[2021-08-21 01:18] LABS: URIC ACID 5.2 mg/dL (2.6-7.2)
[2021-08-21] MEDS: INSULIN SLIDING SCALE (NOVOLOG) 1 VIAL SQ SCH ×4 (09:35→21:37)
[2021-08-21] MEDS: THIAMINE HCL 100 MG TABLET (FP) PO SCH ×2 (09:38→21:34)
[2021-08-21] MEDS: MULTIVITAMINS (DAILY MVI) TABLET (FP) PO SCH (09:38)
[2021-08-21] MEDS: ENOXAPARIN NA (PORCINE) 40 MG/0.4 ML DISP.SYRIN SQ SCH (09:38)
[2021-08-21] MEDS: TAMSULOSIN HCL 0.4 MG CAP PO SCH (09:38)
[2021-08-21] MEDS ORDERED: ALBUTEROL SO4 HFA INHALER IH PRN (09:42)
[2021-08-21] MEDS ORDERED: PT OWN MED DRAWER 7, Y5N ONE ×3 (09:42→13:07)
[2021-08-21] MEDS ORDERED: PANTOPRAZOLE 20 MG TABLET PO SCH (10:00)
[2021-08-21] MEDS ORDERED: INSULIN (NOVOLOG) ASPART 100 UNITS/ML 10ML VIAL ONE (11:39)
[2021-08-21] MEDS: BUDESONIDE/FORMETEROL FUMARATE 160/4.5 mcg INHALER IH SCH ×2 (11:42→21:38)
[2021-08-21] MEDS: TRIAMTERENE AND HCTZ - 37.5 MG/25 MG CAPSULE PO SCH (11:42)
[2021-08-21] MEDS: LOSARTAN POTASSIUM 50 MG TABLET PO SCH (11:43)
[2021-08-21] MEDS: DOCUSATE SODIUM 100 MG CAPSULE (FP) PO SCH (11:43)
[2021-08-21] MEDS: LIDOCAINE PATCH REMOVAL MC SCH (11:43)
[2021-08-21] MEDS: VITAMIN B COMPLEX W/C COMBO TABLET (FP) PO SCH (11:44)
[2021-08-21] MEDS: DULoxetine HCL 30 MG CAPSULE.DR PO SCH (13:08)
[2021-08-21] MEDS: ACETAMINOPHEN 325 MG TABLET (FP) PO PRN ×2 (14:13→21:34)
[2021-08-21] MEDS: ATORVASTATIN CA 10 MG TABLET (FP) PO SCH (21:34)
[2021-08-21] MEDS: MIRTAZAPINE 15 MG TABLET (FP) PO SCH (21:34)
[2021-08-21] MEDS: LIDOCAINE 5% TOPICAL PATCH TP SCH (21:35)
[2021-08-22] MEDS: INSULIN SLIDING SCALE (NOVOLOG) 1 VIAL SQ SCH ×4 (06:00→21:16)
[2021-08-22 08:42] LABS: BASO % 0.7 % (0-2.0); EOS % 2.6 % (0-4.5); HEMOGLOBIN 10.1 GM/dL (11.7-16.9); LYMPH % 37.5 % (8-40); MCH 31.3 pg (25.7-33.7); MCHC 32.7 g/dl (32.0-35.9); MEAN CELL VOLUME 95.7 fl (80-96); MEAN PLT VOLUME 9.6 fl (7.5-11.1); MONO % 10.9 % (3.8-10.2); NEUT % 48.3 % (42.8-82.8); PLATELET COUNT 95 10^3/uL (134-434); RBC 3.24 M/mm3 (4.00-5.60); RDW 14.8 % (11.9-15.9); WHITE BLOOD COUNT 4.3 K/mm3 (4.0-10.0)
[2021-08-22 09:06] LABS: CHLORIDE 107 mmol/L (98-107); SODIUM 142 mmol/L (136-145)
[2021-08-22 09:10] LABS: ANION GAP 6 MMOL/L (8-16); BLOOD UREA NITROGEN 12.5 mg/dL (7-18); CO2 30 mmol/L (21-32); GLUCOSE,RANDOM 103 mg/dL (74-106); MAGNESIUM 1.1 mg/dL (1.8-2.4)
[2021-08-22 09:13] LABS: CREATININE 1.2 mg/dL (0.55-1.3)
[2021-08-22 09:15] LABS: CALCIUM 6.7 mg/dL (8.5-10.1)
[2021-08-22] MEDS: TAMSULOSIN HCL 0.4 MG CAP PO SCH (09:32)
[2021-08-22] MEDS ORDERED: PT OWN MED DRAWER 7, Y5N ONE ×2 (10:03→17:45)
[2021-08-22] MEDS: PANTOPRAZOLE 40 MG TABLET PO SCH (10:07)
[2021-08-22] MEDS: LOSARTAN POTASSIUM 50 MG TABLET PO SCH (10:07)
[2021-08-22] MEDS: DOCUSATE SODIUM 100 MG CAPSULE (FP) PO SCH (10:07)
[2021-08-22] MEDS: DULoxetine HCL 30 MG CAPSULE.DR PO SCH (10:07)
[2021-08-22] MEDS: MULTIVITAMINS (DAILY MVI) TABLET (FP) PO SCH (10:07)
[2021-08-22] MEDS: TRIAMTERENE AND HCTZ - 37.5 MG/25 MG CAPSULE PO SCH (10:08)
[2021-08-22] MEDS: LIDOCAINE PATCH REMOVAL MC SCH (10:09)
[2021-08-22] MEDS: VITAMIN B COMPLEX W/C COMBO TABLET (FP) PO SCH (10:09)
[2021-08-22] MEDS: ENOXAPARIN NA (PORCINE) 40 MG/0.4 ML DISP.SYRIN SQ SCH (10:09)
[2021-08-22] MEDS: THIAMINE HCL 100 MG TABLET (FP) PO SCH ×2 (10:13→21:15)
[2021-08-22] MEDS: BUDESONIDE/FORMETEROL FUMARATE 160/4.5 mcg INHALER IH SCH ×2 (10:13→21:16)
[2021-08-22 10:54] LABS: PHOSPHOROUS 4.2 mg/dL (2.5-4.9)
[2021-08-22] MEDS ORDERED: MAGNESIUM 2GM/50ML STERILE WATER IVPB IVPB ONE (11:00)
[2021-08-22] MEDS: CALCIUM CARBONATE 650 MG TABLET PO SCH ×2 (11:27→21:15)
[2021-08-22] MEDS ORDERED: INSULIN (NOVOLOG) ASPART 100 UNITS/ML 10ML VIAL ONE (11:41)
[2021-08-22] MEDS: ATORVASTATIN CA 10 MG TABLET (FP) PO SCH (21:15)
[2021-08-22] MEDS: MIRTAZAPINE 15 MG TABLET (FP) PO SCH (21:15)
[2021-08-22] MEDS: LIDOCAINE 5% TOPICAL PATCH TP SCH (21:16)
[2021-08-23] MEDS: INSULIN SLIDING SCALE (NOVOLOG) 1 VIAL SQ SCH ×4 (06:30→21:20)
[2021-08-23 08:09] LABS: MYOGLOBIN SERUM 47 ng/mL (28-72)
[2021-08-23 08:26] LABS: BASO % 0.5 % (0-2.0); EOS % 2.4 % (0-4.5); HEMATOCRIT 31.6 % (35.4-49); HEMOGLOBIN 10.4 GM/dL (11.7-16.9); LYMPH % 31.7 % (8-40); MCH 31.4 pg (25.7-33.7); MCHC 32.9 g/dl (32.0-35.9); MEAN CELL VOLUME 95.6 fl (80-96); MONO % 10.7 % (3.8-10.2); NEUT % 54.7 % (42.8-82.8); PLATELET COUNT 103 10^3/uL (134-434); RDW 14.6 % (11.9-15.9); WHITE BLOOD COUNT 4.6 K/mm3 (4.0-10.0)
[2021-08-23 08:54] LABS: ALBUMIN 2.6 g/dl (3.4-5.0); MAGNESIUM 1.4 mg/dL (1.8-2.4)
[2021-08-23 08:57] LABS: CREATININE 1.1 mg/dL (0.55-1.3)
[2021-08-23 08:59] LABS: BILIRUBIN,TOTAL 0.8 mg/dL (0.2-1); TOT PROT 5.7 g/dl (6.4-8.2)
[2021-08-23] MEDS: DULoxetine HCL 30 MG CAPSULE.DR PO SCH (09:49)
[2021-08-23] MEDS: LOSARTAN POTASSIUM 50 MG TABLET PO SCH (09:49)
[2021-08-23] MEDS: TAMSULOSIN HCL 0.4 MG CAP PO SCH (09:49)
[2021-08-23] MEDS: PANTOPRAZOLE 40 MG TABLET PO SCH (09:49)
[2021-08-23] MEDS: ENOXAPARIN NA (PORCINE) 40 MG/0.4 ML DISP.SYRIN SQ SCH (09:49)
[2021-08-23] MEDS: CALCIUM CARBONATE 650 MG TABLET PO SCH (09:49)
[2021-08-23] MEDS: DOCUSATE SODIUM 100 MG CAPSULE (FP) PO SCH (09:49)
[2021-08-23] MEDS: MULTIVITAMINS (DAILY MVI) TABLET (FP) PO SCH (09:49)
[2021-08-23] MEDS: THIAMINE HCL 100 MG TABLET (FP) PO SCH ×2 (09:49→21:20)
[2021-08-23] MEDS: BUDESONIDE/FORMETEROL FUMARATE 160/4.5 mcg INHALER IH SCH ×2 (09:50→21:20)
[2021-08-23] MEDS: LIDOCAINE PATCH REMOVAL MC SCH (09:50)
[2021-08-23] MEDS: TRIAMTERENE AND HCTZ - 37.5 MG/25 MG CAPSULE PO SCH (09:50)
[2021-08-23] MEDS: VITAMIN B COMPLEX W/C COMBO TABLET (FP) PO SCH (09:51)
[2021-08-23] MEDS ORDERED: INSULIN (NOVOLOG) ASPART 100 UNITS/ML 10ML VIAL ONE (11:37)
[2021-08-23 12:23] VITALS: BMI 19.9
[2021-08-23 14:33] VITALS: BP 127/74; PULSE 77; TEMP 97.9
[2021-08-23] MEDS ORDERED: MAGNESIUM OXIDE 400 MG TABLET (FP) PO ONE (14:53)
[2021-08-23] MEDS ORDERED: MAGNESIUM 1GM/D5W 100ML - 100 ML IVPB IVPB ONE (16:57)
[2021-08-23] MEDS ORDERED: CALCITRIOL 0.25 MCG CAPSULE (FP) PO SCH (19:15)
[2021-08-23] MEDS: LIDOCAINE 5% TOPICAL PATCH TP SCH (21:18)
[2021-08-23] MEDS: ATORVASTATIN CA 10 MG TABLET (FP) PO SCH (21:19)
[2021-08-23] MEDS: MIRTAZAPINE 15 MG TABLET (FP) PO SCH (21:20)
[2021-08-23] MEDS ORDERED: CALCIUM CARBONATE 650 MG TABLET PO SCH (22:00)
[2021-08-23] MEDS ORDERED: CALCIUM (OYSTER SHELL) 500 MG TABLET (FP) PO SCH (22:00)
[2021-08-23] MEDS ORDERED: CALCIUM GLUCONATE 10% - 1,000 MG/10 ML VIAL IVPB ONE (23:19)
[2021-08-23] MEDS ORDERED: ERGOCALCIFEROL (VIT D2) 50,000 UNIT (1.25 MG) CAPSULE PO ONE (23:19)
== END 2021-08-23 22:00 | disposition left against medical advice (07) | DRG 421 ==
LOC: JER 13:13 → JERBED 08-21 00:47 → J6S 08-21 08:38
PROVIDERS: ATTEND Family Medicine
DX: R62.7 Adult failure to thrive (principal); R64 Cachexia; K90.9 Intestinal malabsorption, unspecified; E11.9 Type 2 diabetes mellitus without complications; E78.5 Hyperlipidemia, unspecified; E83.51 Hypocalcemia; F10.10 Alcohol abuse, uncomplicated; F17.210 Nicotine dependence, cigarettes, uncomplicated; I10 Essential (primary) hypertension; J43.9 Emphysema, unspecified; K21.9 Gastro-esophageal reflux disease without esophagitis; K70.9 Alcoholic liver disease, unspecified; K76.0 Fatty (change of) liver, not elsewhere classified; M83.9 Adult osteomalacia, unspecified; N18.9 Chronic kidney disease, unspecified; R26.81 Unsteadiness on feet; Z68.1 Body mass index [BMI] 19.9 or less, adult
CPT/HCPCS: 36415; 70450-TC; 71046-TC-FY; 71260-TC; 72125-TC; 74177-TC; 80048; 80053; 81003; 82085; 82105; 82378; 82550; 82607; 82962; 83036; 83735; 83874; 84100; 84153; 84484; 84550; 85025; 85610; 85730; 86140; 86256; 86301; 86304; 86705; 86707; 86708; 87086; 87340; 87350; 87517; 87522; 93005; 93010; 97116-GP; 97161-GP; 99285-25; C9803; Q9967; U0003; U0005

== ENCOUNTER 2024-02-19 11:35 | Inpatient (IN) | payer MEDICARE, OTHER ==
[2024-02-19 14:06] LABS: BASO % 1.1 % (0-2.0); EOS % 0.1 % (0-4.5); HEMATOCRIT 24.9 % (35.4-49); HEMOGLOBIN 7.9 GM/dL (11.7-16.9); LYMPH % 13.9 % (8-40); MCH 30.8 pg (25.7-33.7); MEAN CELL VOLUME 96.2 fl (80-96); MEAN PLT VOLUME 9.8 fl (7.5-11.1); MONO % 13.7 % (3.8-10.2); NEUT % 71.2 % (42.8-82.8); PLATELET COUNT 130 10^3/uL (134-434); RBC 2.58 M/mm3 (4.00-5.60); RDW 14.5 % (11.9-15.9); WHITE BLOOD COUNT 7.8 K/mm3 (4.0-10.0)
[2024-02-19 14:12] LABS: INR 1.13 (0.83-1.09); PROTHROMBIN TIME (PATIENT) 12.7 SEC (9.7-13.0)
[2024-02-19 14:15] LABS: ACTIVATED PTT 25.6 SECONDS (25.2-36.5)
[2024-02-19 14:35] LABS: POTASSIUM 5.9 mmol/L (3.5-5.1)
[2024-02-19 14:37] LABS: CALCIUM 7.8 mg/dL (8.5-10.1)
[2024-02-19 14:38] LABS: ALBUMIN 2.9 g/dl (3.4-5.0); BLOOD UREA NITROGEN 42.7 mg/dL (7-18); MAGNESIUM 1.2 mg/dL (1.8-2.4)
[2024-02-19 14:43] LABS: BILIRUBIN,TOTAL 0.8 mg/dL (0.2-1)
[2024-02-19] MEDS ORDERED: ALBUTEROL SO4 2.5/IPRATROPIUM 0.5 INH SOL 3 ML VIAL.NEB. NEB ONE (14:52)
[2024-02-19] MEDS ORDERED: MAGNESIUM SULFATE IN WATER 2 GM/50 ML IVPB IVPB ONE (15:14)
[2024-02-19] MEDS: ALBUTEROL SO4 2.5/IPRATROPIUM 0.5 INH SOL 3 ML VIAL.NEB. NEB ONE (15:24)
[2024-02-19] MEDS: MAGNESIUM SULF 50% (8.12 MEQ/2 ML-1 GM VIAL) IVPB ONE (15:24)
[2024-02-19] MEDS: methylPREDNISolone NA SUCC 40 MG/1 ML VIAL IVPB SCH (19:25)
[2024-02-19] MEDS: THIAMINE 100 MG TABLET PO SCH (21:17)
[2024-02-19] MEDS: SODIUM CHLORIDE 1,000 ML IV SCH (21:17)
[2024-02-19] MEDS: INSULIN ASPART SLIDING SCALE (NOVOLOG) 1 VIAL SQ SCH (21:18)
[2024-02-20 08:06] LABS: BASO % 0.2 % (0-2.0); HEMATOCRIT 22.8 % (35.4-49); HEMOGLOBIN 7.4 GM/dL (11.7-16.9); LYMPH % 10.1 % (8-40); MCH 31.2 pg (25.7-33.7); MCHC 32.5 g/dl (32.0-35.9); MEAN CELL VOLUME 96.1 fl (80-96); MEAN PLT VOLUME 9.3 fl (7.5-11.1); MONO % 3.7 % (3.8-10.2); PLATELET COUNT 96 10^3/uL (134-434); RBC 2.37 M/mm3 (4.00-5.60); RDW 14.3 % (11.9-15.9); WHITE BLOOD COUNT 5.7 K/mm3 (4.0-10.0)
[2024-02-20 08:24] LABS: POTASSIUM 5.3 mmol/L (3.5-5.1)
[2024-02-20 08:27] LABS: BLOOD UREA NITROGEN 33.6 mg/dL (7-18); MAGNESIUM 1.5 mg/dL (1.8-2.4)
[2024-02-20 08:28] LABS: ALBUMIN 2.8 g/dl (3.4-5.0)
[2024-02-20 08:30] LABS: CREATININE 1.5 mg/dL (0.55-1.3)
[2024-02-20 08:31] LABS: PHOSPHOROUS 2.9 mg/dL (2.5-4.9)
[2024-02-20 08:32] LABS: BILIRUBIN,TOTAL 0.8 mg/dL (0.2-1); TOT PROT 5.6 g/dl (6.4-8.2)
[2024-02-20] MEDS: TAMSULOSIN HCL 0.4 MG CAP PO SCH (10:02)
[2024-02-20] MEDS: PANTOPRAZOLE 40 MG TABLET PO SCH (10:02)
[2024-02-20] MEDS: ASCORBIC ACID 500 MG TABLET (FP) PO SCH (10:07)
[2024-02-20] MEDS: FOLIC ACID 1 MG TABLET (FP) PO SCH (10:08)
[2024-02-20] MEDS ORDERED: INSULIN (NOVOLOG) ASPART 100 UNITS/ML 10ML VIAL ONE (11:49)
[2024-02-20] MEDS: FERROUS SO4 325 MG TABLET (FP) PO SCH (11:52)
[2024-02-20 15:40] VITALS: BMI 16.5
[2024-02-20] MEDS: MAGNESIUM SULF 50% (8.12 MEQ/2 ML-1 GM VIAL) IVPB ONE ×2 (17:21→18:37)
[2024-02-20] MEDS: IRON SUCROSE INJECTION 100 MG in SODIUM CHLORIDE 95 ML IVPB ONE (17:21)
[2024-02-20] MEDS: SODIUM ZIRCONIUM CYCLOSILICATE (LOKELMA) 5 GM PACKET PO SCH ×2 (17:21→18:37)
[2024-02-20] MEDS: SODIUM CHLORIDE 1,000 ML IV SCH (17:23)
[2024-02-21 08:20] LABS: HEMATOCRIT 27.4 % (35.4-49); HEMOGLOBIN 8.9 GM/dL (11.7-16.9); MCH 30.6 pg (25.7-33.7); MCHC 32.7 g/dl (32.0-35.9); MEAN CELL VOLUME 93.7 fl (80-96); MEAN PLT VOLUME 9.4 fl (7.5-11.1); PLATELET COUNT 113 10^3/uL (134-434); RBC 2.92 M/mm3 (4.00-5.60); RDW 16.6 % (11.9-15.9); WHITE BLOOD COUNT 10.9 K/mm3 (4.0-10.0)
[2024-02-21 08:31] LABS: POTASSIUM 4.5 mmol/L (3.5-5.1)
[2024-02-21 08:38] LABS: ALBUMIN 2.7 g/dl (3.4-5.0); BLOOD UREA NITROGEN 34.8 mg/dL (7-18); CALCIUM 8.2 mg/dL (8.5-10.1)
[2024-02-21 08:41] LABS: CREATININE 1.4 mg/dL (0.55-1.3)
[2024-02-21 08:42] LABS: BILIRUBIN,TOTAL 0.8 mg/dL (0.2-1)
[2024-02-21 08:43] LABS: TOT PROT 5.7 g/dl (6.4-8.2)
[2024-02-21] MEDS ORDERED: INSULIN (NOVOLOG) ASPART 100 UNITS/ML 10ML VIAL ONE ×2 (12:06→21:19)
[2024-02-21] MEDS: BENZOCAINE/MENTHOL 1 EACH LOZENGE MM PRN (12:19)
[2024-02-21] MEDS: BUDESONIDE/FORMETEROL FUMARATE 160/4.5 mcg INHALER IH SCH (12:19)
[2024-02-21 17:09] LABS: FREE KAPPA,SERUM 81.9 mg/L (3.3-19.4)
[2024-02-21] MEDS: INSULIN (LEVEMIR) 100 UNITS/ML UNITS SQ SCH (21:20)
[2024-02-22] MEDS ORDERED: INSULIN (NOVOLOG) ASPART 100 UNITS/ML 10ML VIAL ONE ×2 (06:16→21:09)
[2024-02-22 07:38] LABS: POTASSIUM 3.8 mmol/L (3.5-5.1)
[2024-02-22 07:41] LABS: BASO % 0.1 % (0-2.0); CALCIUM 8.4 mg/dL (8.5-10.1); HEMATOCRIT 25.4 % (35.4-49); HEMOGLOBIN 8.4 GM/dL (11.7-16.9); LYMPH % 7.4 % (8-40); MCH 30.8 pg (25.7-33.7); MCHC 33.2 g/dl (32.0-35.9); MEAN PLT VOLUME 9.2 fl (7.5-11.1); MONO % 8.9 % (3.8-10.2); NEUT % 83.6 % (42.8-82.8); PLATELET COUNT 119 10^3/uL (134-434); RBC 2.73 M/mm3 (4.00-5.60); WHITE BLOOD COUNT 9.2 K/mm3 (4.0-10.0)
[2024-02-22 07:42] LABS: ALBUMIN 2.5 g/dl (3.4-5.0); BLOOD UREA NITROGEN 34.1 mg/dL (7-18)
[2024-02-22 07:45] LABS: CREATININE 1.4 mg/dL (0.55-1.3)
[2024-02-22 07:47] LABS: BILIRUBIN,TOTAL 0.8 mg/dL (0.2-1); TOT PROT 5.4 g/dl (6.4-8.2)
[2024-02-22] MEDS: guaiFENesin 200 MG/10 ML 10 ML UNIT-DOSE CUPS PO PRN (22:35)
[2024-02-23 07:36] LABS: BASO % 0.1 % (0-2.0); EOS % 0.7 % (0-4.5); HEMATOCRIT 28.1 % (35.4-49); HEMOGLOBIN 9.1 GM/dL (11.7-16.9); MCH 30.8 pg (25.7-33.7); MCHC 32.4 g/dl (32.0-35.9); MEAN PLT VOLUME 8.7 fl (7.5-11.1); MONO % 15.3 % (3.8-10.2); NEUT % 63.9 % (42.8-82.8); PLATELET COUNT 116 10^3/uL (134-434); RBC 2.95 M/mm3 (4.00-5.60); RDW 15.7 % (11.9-15.9)
[2024-02-23 07:56] LABS: POTASSIUM 3.8 mmol/L (3.5-5.1)
[2024-02-23 08:12] LABS: ALBUMIN 2.4 g/dl (3.4-5.0); BLOOD UREA NITROGEN 25.6 mg/dL (7-18); CALCIUM 8.4 mg/dL (8.5-10.1)
[2024-02-23 08:15] LABS: CREATININE 1.5 mg/dL (0.55-1.3)
[2024-02-23 08:17] LABS: BILIRUBIN,TOTAL 0.7 mg/dL (0.2-1); TOT PROT 5.2 g/dl (6.4-8.2)
[2024-02-23 10:56] LABS: MAGNESIUM 1.3 mg/dL (1.8-2.4)
[2024-02-23] MEDS: MAGNESIUM 2GM/50ML STERILE WATER IVPB IVPB ONE (12:05)
[2024-02-23] MEDS: MAGNESIUM OXIDE 400 MG TABLET (FP) PO SCH (14:52)
[2024-02-24 10:03] LABS: POTASSIUM 3.9 mmol/L (3.5-5.1)
[2024-02-24 10:07] LABS: BLOOD UREA NITROGEN 20.4 mg/dL (7-18); CALCIUM 8.7 mg/dL (8.5-10.1); MAGNESIUM 1.5 mg/dL (1.8-2.4)
[2024-02-24 10:10] LABS: PHOSPHOROUS 2.4 mg/dL (2.5-4.9)
[2024-02-24 10:11] LABS: CREATININE 1.3 mg/dL (0.55-1.3)
[2024-02-24] MEDS: NAPH,MB-DB/K PH,MBDB POWDER PACKET PO SCH (15:31)
[2024-02-24] MEDS ORDERED: INSULIN (NOVOLOG) ASPART 100 UNITS/ML 10ML VIAL ONE (21:31)
[2024-02-25] MEDS ORDERED: INSULIN (NOVOLOG) ASPART 100 UNITS/ML 10ML VIAL ONE (20:35)
[2024-02-26 06:25] VITALS: TEMP 98.8
[2024-02-26 08:23] VITALS: BP 160/78; PULSE 86; RESP 16
[2024-02-26] MEDS ORDERED: INSULIN (NOVOLOG) ASPART 100 UNITS/ML 10ML VIAL ONE (11:47)
== END 2024-02-26 12:21 | DRG 896 ==
LOC: JER 11:35 → JERBED 15:12 → J4W 16:57
PROVIDERS: ADMIT Internal Medicine; ATTEND Internal Medicine
PROC: 30233N1 Transfusion of Nonautologous Red Blood Cells into Peripheral Vein, Percutaneous Approach (ICD-10-PCS; principal; 2024-02-19)
PROC: HZ2ZZZZ Detoxification Services for Substance Abuse Treatment (ICD-10-PCS; 2024-02-19)
DX: F10.930 Alcohol use, unspecified with withdrawal, uncomplicated (principal); E43 Unspecified severe protein-calorie malnutrition; Z68.1 Body mass index [BMI] 19.9 or less, adult; N17.9 Acute kidney failure, unspecified; E78.5 Hyperlipidemia, unspecified; K21.9 Gastro-esophageal reflux disease without esophagitis; K70.9 Alcoholic liver disease, unspecified; D64.9 Anemia, unspecified; R26.81 Unsteadiness on feet; I12.9 Hypertensive chronic kidney disease with stage 1 through stage 4 chronic kidney disease, or unspecified chronic kidney disease; E11.22 Type 2 diabetes mellitus with diabetic chronic kidney disease; R29.6 Repeated falls; R09.02 Hypoxemia; J44.9 Chronic obstructive pulmonary disease, unspecified; F17.210 Nicotine dependence, cigarettes, uncomplicated; N18.9 Chronic kidney disease, unspecified; M54.50 Low back pain, unspecified; E83.42 Hypomagnesemia; W18.30XA Fall on same level, unspecified, initial encounter; Y92.098 Other place in other non-institutional residence as the place of occurrence of the external cause; Y99.9 Unspecified external cause status
CPT/HCPCS: 36415; 36430; 70450-TC; 70486-TC; 71045-TC-FY; 72125-TC; 73521-TC-FY; 76705-TC; 80048; 80053; 80061; 82105; 82728; 82962; 83010; 83036; 83540; 83550; 83735; 83883; 84100; 84132; 84155; 84165; 84443; 84466; 84484; 85025; 85027; 85045; 85610; 85730; 86707; 86708; 86709; 86850; 86900; 86901; 86922; 87340; 87350; 87517; 87522; 93005; 93010; 93306-TC; 97116-GP; 97162-GP; 99285-25; J1756; P9038; P9058

== ENCOUNTER 2025-04-05 16:57 | Observation (INO) | payer MEDICARE, OTHER ==
[2025-04-05 18:56] LABS: MCHC 30.7 g/dl (32.3-36.5); MEAN CELL VOLUME 84.1 fl (79.0-92.2); RDW 17.4 % (12.2-16.4)
[2025-04-05 19:12] LABS: INR 1.14 (0.83-1.09); PROTHROMBIN TIME (PATIENT) 12.5 SEC (9.7-13.0)
[2025-04-05 19:15] LABS: ACTIVATED PTT 32.1 SECONDS (25.2-36.5)
[2025-04-05 19:29] LABS: CO2 29.0 mmol/L (21-32); GLUCOSE,RANDOM 202.0 mg/dL (74-106)
[2025-04-05 19:32] LABS: CREATININE 1.5 mg/dL (0.55-1.3); SGOT/AST 18.0 U/L (15-37); SGPT/ALT 15.0 U/L (13-61)
[2025-04-05 19:33] LABS: TOT PROT 6.6 g/dl (6.4-8.2)
[2025-04-05 19:34] LABS: ALK PHOS 116.0 U/L (45-117)
[2025-04-05] MEDS ORDERED: MAGNESIUM SULFATE IN WATER 2 GM/50 ML IVPB IVPB ONE (20:24)
[2025-04-05 20:28] LABS: HEPATITIS B SURF AG NON-MATERN NON-REACTIVE (NONREACTIVE)
[2025-04-05] MEDS: MAGNESIUM SULFATE IN WATER 2 GM/50 ML IVPB IVPB ONE (20:41)
[2025-04-05 20:57] LABS: HCV DIAGNOSTIC IN-HOUSE W/RFLX NON-REACTIVE (NONREACTIVE); HIV INTERPRETATION NEGATIVE (NEGATIVE)
[2025-04-06 00:52] VITALS: RESP 17; BMI 18.8
[2025-04-06] MEDS: amLODIPine BESYLATE 5 MG TABLET (FP) PO ONE (01:37)
[2025-04-06 07:48] LABS: ABSOLUTE IMMATURE GRANULOCYTES 0.02 x10^3/uL (0.0-0.031); BASOPHILS # 0.06 x10^3/uL (0.01-0.08); EOSINOPHIL % 4.2 % (0.8-7.0); EOSINOPHILS # 0.36 x10^3/uL (0.04-0.54); MCHC 29.7 g/dl (32.3-36.5); MEAN CELL VOLUME 85.0 fl (79.0-92.2); MEAN PLT VOLUME 12.2 fl (9.4-12.4); MONOCYTE # 0.80 x10^3/uL (0.30-0.82); MONOCYTE % 9.3 % (5.3-12.2); RDW 17.1 % (12.2-16.4)
[2025-04-06 08:54] LABS: CO2 29.0 mmol/L (21-32); GLUCOSE,RANDOM 193.0 mg/dL (74-106)
[2025-04-06 08:57] LABS: CREATININE 1.6 mg/dL (0.55-1.3)
[2025-04-06 08:58] LABS: LDL CHOLESTEROL (ONLY SJRH) 77.0 mg/dL (5-100)
[2025-04-06] MEDS: TAMSULOSIN HCL 0.4 MG CAP PO SCH (09:06)
[2025-04-06] MEDS: LOSARTAN POTASSIUM 50 MG TABLET PO SCH (09:06)
[2025-04-06] MEDS: ATORVASTATIN CA 40 MG TABLET (FP) PO ONE (15:26)
[2025-04-06] MEDS: ASPIRIN 81 MG CHEWABLE TABLETS PO ONE (15:26)
[2025-04-06 15:53] VITALS: BP 162/93; PULSE 63; TEMP 98.2
== END 2025-04-06 19:00 | disposition home or self-care (01) ==
LOC: JER 16:57 → JERBED 22:07 → J4S 04-06 00:28
PROVIDERS: ADMIT Family Medicine; ATTEND Family Medicine
PROC: 3E033GC Introduction of Other Therapeutic Substance into Peripheral Vein, Percutaneous Approach (ICD-10-PCS; principal; 2025-04-05)
DX: R20.0 Anesthesia of skin (principal); R47.81 Slurred speech; R53.1 Weakness; E11.9 Type 2 diabetes mellitus without complications; K21.9 Gastro-esophageal reflux disease without esophagitis; Z79.01 Long term (current) use of anticoagulants; I10 Essential (primary) hypertension; E78.5 Hyperlipidemia, unspecified; R90.82 White matter disease, unspecified; Z90.49 Acquired absence of other specified parts of digestive tract; F17.210 Nicotine dependence, cigarettes, uncomplicated; G89.29 Other chronic pain; M54.50 Low back pain, unspecified; Z86.718 Personal history of other venous thrombosis and embolism
CPT/HCPCS: 36415; 70450-TC; 70496-TC; 70498-TC; 71045-TC-FY; 80048; 80053; 80061; 82550; 83036; 83735; 84443; 84484; 85025; 85027; 85610; 85730; 86618; 86803; 87340; 87389; 93005; 93010; 96365; 97116-GP; 97161-GP; 99285-25; G0378